=== PATIENT | male | born 1975 | race Two or more races ===

== ENCOUNTER → 2019-04-19 | Outpatient (CLI) | payer BC, OTHER ==
--- NOTE | 2019-04-19 16:28 | KCIC ---
MRI Brain without contrast History: Hypogonadism, elevated prolactin Technique: Multiplanar, multisequential noncontrast MR imaging was performed of the brain. Patient declined contrast. Comparison: None Findings: There is some motion degradation. There is no evidence of recent infarct or cytotoxic edema. The ventricles, sulci, and cisterns are within normal limits in size and configuration. There is no significant midline shift, intraaxial mass effect, or focal abnormal extra-axial fluid collection. There is no significant signal abnormality of the brain parenchyma. There is preservation of the major intracranial flow-voids at the skull base. The mastoid air cells are aerated. The cerebellar tonsils are normal in location. There is no significant abnormality of the pineal gland. Pituitary gland is not considered enlarged. Discrete mass is not confidently identified on this noncontrast exam. There is no deviation of the optic chiasm. There is mild deviation of the infundibulum to the right although is apparently related to the left sphenoid sinus with deviation of the sella rather than soft tissue abnormality of the left sella. There is patchy mild bilateral ethmoid air cell mucosal thickening. Frontal sinus is not significantly pneumatized. There is preserved marrow signal of the clivus. Impression: 1. Pituitary gland is not enlarged, no obvious mass identified on this noncontrast exam. Patient declined contrast. There is no significant intracranial abnormality. Electronically signed by: Ayden Rico MD (04/19/2019 4:25 PM) [id number]
== END | disposition home or self-care (01) ==
LOC: KCIC MRI 15:12
PROVIDERS: ATTEND Physician Assistant Surgical
DX: E22.9 Hyperfunction of pituitary gland, unspecified (principal); E29.1 Testicular hypofunction
CPT/HCPCS: 70551